=== PATIENT | female | born 1985 | race Caucasian/White ===

== ENCOUNTER 2017-08-02 04:25 | Inpatient (IN) | payer OTHER ==
[2017-08-02] MEDS ORDERED: Sodium Citrate/Citric Acid* 15 ML UDC PO ONE (04:46)
[2017-08-02] MEDS ORDERED: ceFOXitin 2 GM IVPREMIX* 2 GM/50 ML BAG IVPB ONE (04:46)
[2017-08-02] MEDS ORDERED: Morphine PF AMP (0.5MG/ML)* 5 MG/10 ML AMP ONE (04:53)
[2017-08-02] MEDS ORDERED: Bupivacaine-MPF SPINAL* 7.5 MG/2 ML AMP ONE (04:54)
[2017-08-02] MEDS ORDERED: Lidocaine 2% PF * 5 ML VIAL ONE (04:54)
[2017-08-02] MEDS ORDERED: Ketorolac INJ* 30 MG/ML 1 ML VIAL ONE (04:54)
[2017-08-02] MEDS ORDERED: OXYTOCIN* 10 UNITS/ML 1 ML VIAL ONE (04:54)
[2017-08-02] MEDS ORDERED: DiMENhydriNATE IV* 50 MG/ML VIAL ONE (04:54)
[2017-08-02] MEDS ORDERED: ceFOXitin 2 GM IVPREMIX* 2 GM/50 ML BAG ONE (04:56)
[2017-08-02] MEDS ORDERED: Sodium Citrate/Citric Acid* 15 ML UDC ONE (04:56)
[2017-08-02 05:01] LABS: ABS Basophils 0.1 10^3/ul (0-0.2); ABS Eosinophils 0.1 10^3/ul (0-0.6); ABS Lymphocytes 3.7 10^3/ul (1.0-4.8); ABS Monocytes 1.1 10^3/ul (0-0.8); ABS Neutrophils 8.8 10^3/ul (1.5-7.7); ABS Nucleated RBC 0 10^3/ul; Eosinophil % 0.6 % (0-6); Hematocrit 41 % (35-47); Hemoglobin 14.5 g/dl (12.0-16.0); Lymphocyte % 26.6 % (25-47); Mean Corpuscular HGB Conc 35 g/dl (31-36); Mean Corpuscular Hemoglobin 32 pg (27-31); Mean Corpuscular Volume 92 fL (80-97); Mean Platelet Volume 9.1 um3 (7.4-10.4); Nucleated Red Blood Cells % 0.1; Platelet Count 168 10^3/ul (150-450); Red Cell Distribution Width 13 % (10.5-15); White Blood Count 13.7 10^3/ul (3.5-10.8)
--- NOTE | 2017-08-02 05:10 | HP ---
General Information - General Information Maternal Age: 31 Grav: 3 Para: 0 SAB: 0 IEA: 2 Estimated Due Date: 08/10/17 Determined By: LMP Gestational Age in Weeks and Days: 37 Weeks and 2 Days Maternal Blood Type and Rh: A Positive - Results this Serology/RPR Result: Non-Reactive Rubella Result: Immune HBsAg Result: Negative HIV Result: Negative Past Medical History Pertinent Past Medical History: Non-Contributory Pertinent Past Surgical History: See Records Pertinent Family History: Non-Contributory - Antepartal Records Antepartal Records: Reviewed, Complicated by: - breech, failed ECV Review of Systems Constitutional: Uncomfortable CV Complaint: No Respiratory: Shortness of Breath: No Gastrointestinal: No Nausea/Vomiting Genitourinary: Bleeding, Leaking Fluid Musculoskeletal: Contractions Movement: Normal Exam Allergies/Adverse Reactions: Allergies Latex, Natural Rubber Allergy (Verified 07/22/17 09:42) Rash Lab Values - Entire Visit: Laboratory Tests 08/02/17 04:45 WBC 13.7 H RBC 4.50 Hgb 14.5 Hct 41 MCV 92 MCH 32 H MCHC 35 RDW 13 Plt Count 168 MPV 9.1 Neut % (Auto) 64.2 Lymph % (Auto) 26.6 [place] % (Auto) 7.8 H Eos % (Auto) 0.6 Baso % (Auto) 0.8 Absolute Neuts (auto) 8.8 H Absolute Lymphs (auto) 3.7 Absolute Monos (auto) 1.1 H Absolute Eos (auto) 0.1 Absolute Basos (auto) 0.1 Absolute Nucleated RBC 0 Nucleated RBC % 0.1 - Measurements Pre- Weight: 150 lb - Exam Breast: Breast Exam Deferred Heart: Normal Rhythm/Heart Sounds HEENT: No Significant Findings Targeted Exam Findings Cervical Exam: 5cm Effacement: 90% Station: -3 Presenting Part: Breech Membrane Status: Leaking EFM Findings - External Monitor Findings External Monitor Findings: Accelerations Present, No Pattern of Variable or Late Decelerations, Variability Moderate, Baseline Stable Contractions: Regular Assessment/Plan - Reason for Visit Reason for Visit: P0 @38.6wks, active labor, ROM@4am, breech presentation. - Obstetrical Risk Factors Obstetrical Risk Factors: GBS Positive Risk Factors Comment: Breech - Plan Plan: Active Labor, Expedite C/S Delivery
[2017-08-02] MEDS ORDERED: EPHEDrine (Pressors)* 50 MG/ML VIAL ONE (05:15)
[2017-08-02] MEDS ORDERED: Midazolam* 1 MG/ML 2 ML VIAL (2 MG) ONE (05:35)
[2017-08-02] MEDS ORDERED: fentaNYL* 50 MCG/ML 2 ML VIAL (100 MCG VIAL) ONE (05:40)
[2017-08-02] MEDS ORDERED: HYDROmorphone INJ* 1 MG/ML CARPUJECT SYRINGE IV PRN (05:57)
[2017-08-02] MEDS ORDERED: Naloxone* 0.4 MG/ML 1 ML VIAL IV PRN ×2 (05:57→05:59)
[2017-08-02] MEDS ORDERED: Acetaminophen IV 1GM/100ML * 1,000 MG/100 ML VIAL IVPB ONE (05:57)
[2017-08-02] MEDS ORDERED: Ondansetron INJ* 2 MG/ML VIAL IV PRN ×2 (05:57→05:59)
[2017-08-02] MEDS ORDERED: diPHENhydraMINE IV* 50 MG/ML 1 ml VIAL (BENADRYL) IV PRN (05:59)
[2017-08-02] MEDS ORDERED: oxyCODONE/Acetamin 5/325 MG* TAB PO PRN ×2 (05:59→21:11)
[2017-08-02] MEDS ORDERED: Phenylephrine IV* 40 MCG/ML 10 ML SYRINGE ONE (06:04)
[2017-08-02] MEDS ORDERED: Glycerin ADULT SUPP PR PRN (06:15)
[2017-08-02] MEDS ORDERED: Dibucaine 1% 28.35 GM TUBE PR PRN (06:15)
[2017-08-02] MEDS ORDERED: Zolpidem TAB* 5 MG PO PRN (06:15)
[2017-08-02] MEDS ORDERED: Witch Hazel PAD* JAR TOPICAL PRN (06:15)
[2017-08-02] MEDS: Simethicone TAB* 80 MG TAB.CHEW PO SCH ×4 (08:30→20:56)
[2017-08-02] MEDS: Docusate CAP* 100 MG PO SCH ×3 (09:00→20:56)
[2017-08-02] MEDS: Ketorolac INJ* 30 MG/ML 1 ML VIAL IV PRN ×2 (11:56→17:35)
--- NOTE | 2017-08-02 14:13 | PTEDU ---
Patient Name: CALOS MARTIN VERONICACALOS selected video: Follow Me Mum: The [facility] to Successful to view on 8 at 2:12:21 PM [id number]
[2017-08-03] MEDS: Ketorolac INJ* 30 MG/ML 1 ML VIAL IV PRN (03:22)
--- NOTE | 2017-08-03 03:58 | OP ---
DATE OF OPERATION: 08/02/17 - ROOM #104 DATE OF : 83 SURGEON: Tori Rome MD MEAT INSPECTOR: Vinh Aranda CNM. ANESTHESIA: Spinal. PRE-OP DIAGNOSIS: Intrauterine gestation at 38 and 6 weeks gestational age, active labor, breech presentation. POST-OP DIAGNOSIS: Intrauterine gestation at 38 and 6 weeks gestational age, active labor, breech presentation. OPERATIVE PROCEDURE: Primary lower transverse section. ESTIMATED BLOOD LOSS: 600 mL. FLUIDS: Crystalloid. DRAINS: Overton catheter. FINDINGS: Female infant, weight 5 pounds 15 ounces, Apgars 9 and 9. Normal- appearing uterus, ovaries and tubes. Normal-appearing placenta. COUNTS: All correct. DESCRIPTION OF PROCEDURE: After informed consent was signed, the patient was taken to the operating room where she was given a spinal anesthesia that was found to be adequate. She was prepped and draped in the dorsal supine position with a leftward tilt. A Pfannenstiel skin incision was made with a scalpel and carried down to the underlying layer of fascia with the scalpel. The fascia was incised on either side in the midline and the fascial incision was extended laterally with the Mary scissors. The inferior edge of the fascial incision was grasped with Susanne clamps, tented up, and dissected down with a combination of sharp and blunt dissection. Then the superior edge of the fascial incision was grasped with Susanne clamps, tented up, and dissected down with a combination of sharp and blunt dissection. The rectus muscles were in the midline and the peritoneum was entered bluntly. The peritoneal incision was extended laterally with a blunt pressure and the incision was further opened with Metzenbaum scissors. The bladder blade was inserted and a transverse incision was made in the uterus with a scalpel and the incision was extended superior to inferiorly with blunt pressure. The was in complete breech presentation. The buttocks were delivered followed by the torso and legs. The arms were then delivered and rotated inwardly and the head was delivered in a flexed position. After 1 minute, the cord was clamped x2 and cut and the baby was handed to the advisor consultant. Cord blood was collected. The placenta was delivered with gentle cord traction and fundal massage. The uterus was then exteriorized and covered with a wet lap. The uterus was cleared of clots and debris. The uterine incision was then closed with 0 Vicryl in a running locked fashion with the second layer of suture imbricating the first. Good hemostasis was noted. The abdomen was irrigated and the uterus was then placed back into the abdominal cavity. The incision was inspected once again and good hemostasis was noted. The peritoneum was closed with 3-0 Vicryl in a running locked fashion. The fascia was closed with 0 Vicryl in a running unlocked fashion. The subcuticular layer was irrigated and then the skin was closed with 4-0 Monocryl in a running subcuticular fashion. Mastisol and Steri-Strips were placed. The incision was cleaned and dressed. The patient was moved to stretcher and taken to the recovery room in stable condition. [id number]/[facility] #: [id number] [employer]EIGN
[2017-08-03 06:34] LABS: ABS Basophils 0.1 10^3/ul (0-0.2); ABS Eosinophils 0.1 10^3/ul (0-0.6); ABS Lymphocytes 2.4 10^3/ul (1.0-4.8); ABS Monocytes 0.8 10^3/ul (0-0.8); ABS Nucleated RBC 0 10^3/ul; Eosinophil % 0.6 % (0-6); Hematocrit 36 % (35-47); Hemoglobin 12.5 g/dl (12.0-16.0); Lymphocyte % 21.3 % (25-47); Mean Corpuscular HGB Conc 35 g/dl (31-36); Mean Corpuscular Hemoglobin 32 pg (27-31); Mean Corpuscular Volume 92 fL (80-97); Mean Platelet Volume 9.2 um3 (7.4-10.4); Nucleated Red Blood Cells % 0.1; Platelet Count 128 10^3/ul (150-450); Red Blood Count 3.88 10^6/ul (4.0-5.4); Red Cell Distribution Width 13 % (10.5-15); White Blood Count 11.3 10^3/ul (3.5-10.8)
[2017-08-03] MEDS: Acetaminophen TAB* 325 MG PO PRN ×3 (06:37→17:51)
[2017-08-03] MEDS: Docusate CAP* 100 MG PO SCH ×3 (10:00→20:39)
[2017-08-03] MEDS: Ferrous Gluconate TAB* 324 MG TAB PO SCH ×2 (10:00→23:37)
[2017-08-03] MEDS: Simethicone TAB* 80 MG TAB.CHEW PO SCH ×4 (10:00→20:39)
[2017-08-03] MEDS: oxyCODONE/Acetamin 5/325 MG* TAB PO PRN ×2 (10:00→20:39)
[2017-08-03] MEDS: Ibuprofen TAB* 600 MG PO PRN ×2 (10:00→17:50)
[2017-08-04] MEDS: Ibuprofen TAB* 600 MG PO PRN ×4 (02:08→20:23)
[2017-08-04] MEDS: oxyCODONE/Acetamin 5/325 MG* TAB PO PRN ×2 (02:08→09:43)
[2017-08-04] MEDS: Simethicone TAB* 80 MG TAB.CHEW PO SCH ×4 (08:07→20:23)
[2017-08-04] MEDS: Docusate CAP* 100 MG PO SCH ×3 (08:07→20:23)
[2017-08-05] MEDS: Ibuprofen TAB* 600 MG PO PRN ×2 (02:51→08:45)
[2017-08-05 07:58] VITALS: BP 119/73
[2017-08-05] MEDS: Docusate CAP* 100 MG PO SCH (08:45)
[2017-08-05] MEDS: Simethicone TAB* 80 MG TAB.CHEW PO SCH (08:45)
== END 2017-08-05 13:25 | disposition home or self-care (01) | DRG 540 ==
LOC: MCHOBOUT 04:25 → MCHOB 04:35
PROVIDERS: ADMIT Obstetrics & Gynecology; ATTEND Obstetrics & Gynecology
PROC: 4A1HXCZ Monitoring of Products of Conception, Cardiac Rate, External Approach (ICD-10-PCS; 2017-08-02)
PROC: 10D00Z1 Extraction of Products of Conception, Low, Open Approach (ICD-10-PCS; principal; 2017-08-02 05:05)
DX: O32.1XX0 Maternal care for breech presentation, not applicable or unspecified (principal); O99.824 Streptococcus B carrier state complicating childbirth; O77.0 Labor and delivery complicated by meconium in amniotic fluid; Z3A.38 38 weeks gestation of pregnancy; Z37.0 Single live birth; Z87.891 Personal history of nicotine dependence; Z91.040 Latex allergy status
CPT/HCPCS: 36415; 76815; 85025; 86850; 86900; 86901; A9270-GY; J0694; J1170; J1240; J1885; J2250; J2590; J3010